=== PATIENT | female | born 1945 | race Caucasian/White ===

== ENCOUNTER 2024-07-12 07:28 | Day surgery (SDC) | payer MEDICARE, OTHER ==
[2024-07-12] MEDS ORDERED: Midazolam 1 MG/ML 2 ML SDV IV ONE (07:29)
[2024-07-12] MEDS ORDERED: fentaNYL 100 MCG/2 ML SDV IV ONE (07:29)
[2024-07-12] MEDS ORDERED: Lactated Ringers 1,000 ML IV PRN (07:30)
[2024-07-12] MEDS: Sodium Chloride 0.9% 10 ML Syringe FLUSH PRN (08:13)
[2024-07-12] MEDS: acetaZOLAMIDE 500 MG Cap.ER PO ONE (10:19)
== END 2024-07-12 10:30 | disposition home or self-care (01) ==
LOC: FB.SDS 07:28
PROVIDERS: ATTEND Ophthalmology
DX: H26.9 Unspecified cataract (principal); I10 Essential (primary) hypertension; Z87.891 Personal history of nicotine dependence; Z79.899 Other long term (current) drug therapy
CPT/HCPCS: 00142; 99100; A9270-GY; J2250; J3010; J3490; V2632

== ENCOUNTER 2024-08-02 08:28 | Day surgery (SDC) | payer MEDICARE, OTHER ==
[2024-08-02] MEDS ORDERED: Sodium Chloride 0.9% 10 ML Syringe IV ONE (08:29)
[2024-08-02] MEDS ORDERED: Midazolam 1 MG/ML 2 ML SDV IV ONE (08:29)
[2024-08-02] MEDS ORDERED: fentaNYL 100 MCG/2 ML SDV IV ONE (08:29)
[2024-08-02] MEDS ORDERED: Lactated Ringers 1,000 ML IV PRN (08:30)
[2024-08-02] MEDS: Sodium Chloride 0.9% 10 ML Syringe FLUSH PRN (08:57)
[2024-08-02] MEDS: acetaZOLAMIDE 500 MG Cap.ER PO ONE (10:25)
== END 2024-08-02 10:55 | disposition home or self-care (01) ==
LOC: FB.SDS 08:28
PROVIDERS: ATTEND Ophthalmology
DX: H26.9 Unspecified cataract (principal); I10 Essential (primary) hypertension; E66.9 Obesity, unspecified; Z87.891 Personal history of nicotine dependence
CPT/HCPCS: 66984; A9270; J2250; J3010; J3490; V2632; 00142; 99100

== ENCOUNTER 2025-06-21 07:44 | Inpatient (IN) | payer MEDICARE, OTHER ==
[2025-06-21] MEDS: Sennosides/Docusate Sodium 50-8.6 MG Tab PO PRN (20:12)
[2025-06-22] MEDS: Ondansetron 4 MG Tab.DIS PO PRN (07:18)
[2025-06-22] MEDS: Cholecalciferol (Vitamin D3) 25 MCG Tab PO SCH (08:35)
[2025-06-22] MEDS: Iopamidol 755 Mg/ML 100 ML Bottle IV SCH (11:23)
[2025-06-22] MEDS: Amoxicillin/Clavulanate K 875-125 MG Tab PO SCH (20:37)
[2025-06-22] MEDS: Sennosides/Docusate Sodium 50-8.6 MG Tab PO SCH (20:38)
[2025-06-23] MEDS: Amoxicillin/Clavulanate K 875-125 MG Tab PO SCH (20:19)
== END 2025-06-30 17:20 | disposition home health service (06) | DRG 948 ==
LOC: FB.MS 12:09
PROVIDERS: ADMIT Internal Medicine; ATTEND Family Medicine
DX: R53.81 Other malaise (principal); E78.00 Pure hypercholesterolemia, unspecified; I48.91 Unspecified atrial fibrillation; H54.7 Unspecified visual loss; K59.09 Other constipation; F41.9 Anxiety disorder, unspecified; R51.9 Headache, unspecified; I10 Essential (primary) hypertension; E66.9 Obesity, unspecified; K04.7 Periapical abscess without sinus; Z98.49 Cataract extraction status, unspecified eye; Z98.890 Other specified postprocedural states; Z79.1 Long term (current) use of non-steroidal anti-inflammatories (NSAID); Z79.899 Other long term (current) drug therapy; Z79.51 Long term (current) use of inhaled steroids; Z79.01 Long term (current) use of anticoagulants; Z95.0 Presence of cardiac pacemaker; Z87.891 Personal history of nicotine dependence
CPT/HCPCS: 70487; 70487-26; 93880; 93880-26; 97110-GP; 97112-GP; 97116-GP; 97161-GP; 97165-GO; 97530-GP; 97535-GO; 99305; 99308; 99315; A9270-GY; Q0162; Q9967